=== PATIENT | male | born 1985 | race Caucasian/White ===

== ENCOUNTER 2020-08-08 20:55 | Emergency (ER) | payer OTHER ==
[~2020-08-08] VITALS: Ht 170.2 cm; Wt 88.9 kg
[2020-08-08] MEDS ORDERED: BIKTARVY 50-201 EACH PO (21:24)
[2020-08-08] MEDS ORDERED: PAXIL40 MG PO (21:24)
[2020-08-08] MEDS ORDERED: PRENATA CHEWAB1 EACH PO (21:24)
[2020-08-08] MEDS ORDERED: VITAMIN D250 MCG PO (21:25)
[2020-08-08] MEDS ORDERED: NORCO 5-325 TA1 EACH PO (21:54)
[2020-08-08] MEDS ORDERED: KEFLEX500 MG PO (21:57)
== END 2020-08-08 22:45 | disposition home or self-care (01) ==
LOC: ED 20:55
DX: S67.21XA Crushing injury of right hand, initial encounter (principal); S62.634A Displaced fracture of distal phalanx of right ring finger, initial encounter for closed fracture; S62.630A Displaced fracture of distal phalanx of right index finger, initial encounter for closed fracture; S62.501A Fracture of unspecified phalanx of right thumb, initial encounter for closed fracture; S61.214A Laceration without foreign body of right ring finger without damage to nail, initial encounter; W23.0XXA Caught, crushed, jammed, or pinched between moving objects, initial encounter; Z79.899 Other long term (current) drug therapy
CPT/HCPCS: 12002; 73130; 90471; 90715; 99283-25

== ENCOUNTER 2021-01-22 05:51 | Emergency (ER) | payer OTHER ==
[~2021-01-22] VITALS: Ht 170.2 cm; Wt 90.6 kg
[~2021-01-22 05:51] MED LIST: BIKTARVY 50-201 EACH PO; KEFLEX500 MG PO; NORCO 5-325 TA1 EACH PO; PAXIL40 MG PO; PRENATA CHEWAB1 EACH PO; VITAMIN D250 MCG PO
== END 2021-01-22 06:54 | disposition home or self-care (01) ==
LOC: ED 05:51
PROC: 0HQGXZZ Repair Left Hand Skin, External Approach (ICD-10-PCS; principal; 2021-01-22)
DX: S61.012A Laceration without foreign body of left thumb without damage to nail, initial encounter (principal); W26.9XXA Contact with unspecified sharp object(s), initial encounter; Z87.891 Personal history of nicotine dependence; Z79.899 Other long term (current) drug therapy
CPT/HCPCS: 12002; 99282-25

== ENCOUNTER 2021-11-28 22:27 | Emergency (ER) | payer OTHER ==
[~2021-11-28] VITALS: Ht 170.2 cm; Wt 88.5 kg
[2021-11-28] MEDS ORDERED: LIPITOR10 MG PO (22:41)
[2021-11-28] MEDS ORDERED: LIDOCAINE35.44 GM TOP (22:46)
[2021-11-28] MEDS ORDERED: METHYLPREDNISOLO4 M1 PO (22:47)
== END 2021-11-29 00:17 | disposition home or self-care (01) ==
LOC: ED 22:27
DX: L50.9 Urticaria, unspecified (principal); K14.8 Other diseases of tongue; T78.1XXA Other adverse food reactions, not elsewhere classified, initial encounter; Z87.891 Personal history of nicotine dependence; Z79.899 Other long term (current) drug therapy
CPT/HCPCS: 96374; 99283-25; J0171